=== PATIENT | female | born 1970 | race Caucasian/White ===

== ENCOUNTER → 2018-12-16 | Outpatient (CLI) | payer BC ==
[2018-12-16 11:43] LABS: Basophils % (A) 1 %; Eosinophils # (A) 0.1 k/uL (0-0.7); Eosinophils % (A) 3 %; HCT 40.3 % (34.0-46.0); HGB 13.5 gm/dL (11.4-16.0); Lymphocytes # (A) 1.7 k/uL (1.0-4.8); Lymphocytes % (A) 32 %; MCH 30.1 pg (25.0-35.0); MCHC 33.4 g/dL (31.0-37.0); MCV 90.3 fL (80.0-100.0); Mean Platelet Volume 6.7; Monocytes # (A) 0.4 k/uL (0-1.0); Monocytes % (A) 7 %; Neutrophils % (A) 55 %; Platelet Count 283 k/uL (150-450); RBC 4.47 m/uL (3.80-5.40); RDW 14.3 % (11.5-15.5); WBC 5.4 k/uL (3.8-10.6)
[2018-12-16 16:26] LABS: Carbon Dioxide 25.8 mmol/L (21.6-31.8)
== END | disposition home or self-care (01) ==
LOC: LABWHC1 10:53
PROVIDERS: ATTEND Otolaryngology
DX: R53.83 Other fatigue (principal); R07.0 Pain in throat
CPT/HCPCS: 36415; 82374; 82607; 84439; 84443; 85025; 86431

== ENCOUNTER → 2018-12-17 | Outpatient (CLI) | payer BC | END | disposition home or self-care (01) | LOC: LABWHC1 09:17 | PROVIDERS: ATTEND Otolaryngology | DX: T58.91XA Toxic effect of carbon monoxide from unspecified source, accidental (unintentional), initial encounter (principal) | CPT/HCPCS: 82375 ==